=== PATIENT | male | born 1975 | race Two or more races ===

== ENCOUNTER 2020-01-30 06:00 | Day surgery (SDC) | payer OTHER ==
[2020-01-30] MEDS ORDERED: FLAGYL500MG PO (11:41)
[2020-01-30] MEDS ORDERED: CIPRO500 MG PO (11:41)
== END 2020-01-30 12:45 | disposition home or self-care (01) ==
LOC: AMB-ENDOS 06:00
PROVIDERS: ATTEND Surgery
DX: K63.5 Polyp of colon (principal); Z20.828 Contact with and (suspected) exposure to other viral communicable diseases; K64.8 Other hemorrhoids

== ENCOUNTER 2020-02-25 09:45 | Inpatient (IN) | payer OTHER ==
[~2020-02-25] VITALS: Ht 170.2 cm; Wt 89.8 kg
[~2020-02-25 09:45] MED LIST: CIPRO500 MG PO; FLAGYL500MG PO
[2020-02-25] MEDS ORDERED: IRBESARTAN-HCT1 EACH PO (14:47)
[2020-02-25] MEDS ORDERED: ZYLOPRIM100 MG PO (14:48)
[2020-02-25] MEDS ORDERED: LIPITOR40 M1 PO (14:48)
[2020-02-25] MEDS ORDERED: ASPIR 8181 MG PO (14:48)
[2020-02-25] MEDS ORDERED: ZETIA10 MG PO (14:48)
[2020-02-25] MEDS ORDERED: OMEGA 3-6-9 CO400 MG PO (14:48)
[2020-02-25] MEDS ORDERED: SINGULAIR10 MG PO (14:49)
[2020-02-25] MEDS ORDERED: XYZAL5 MG PO (14:49)
== END 2020-03-05 13:37 | disposition home or self-care (01) | DRG 330 ==
LOC: SURG 03-03 06:45 → O/R 03-03 06:45 → SURH 03-03 08:45 → SURG 03-03 14:59
PROVIDERS: ADMIT Surgery; ATTEND Surgery
PROC: 0DBN4ZZ Excision of Sigmoid Colon, Percutaneous Endoscopic Approach (ICD-10-PCS; 2020-03-03)
PROC: 0DJD8ZZ Inspection of Lower Intestinal Tract, Via Natural or Artificial Opening Endoscopic (ICD-10-PCS; 2020-03-03)
PROC: 0DTP4ZZ Resection of Rectum, Percutaneous Endoscopic Approach (ICD-10-PCS; principal; 2020-03-03 08:45)
DX: K57.30 Diverticulosis of large intestine without perforation or abscess without bleeding (principal); K56.699 Other intestinal obstruction unspecified as to partial versus complete obstruction

== ENCOUNTER 2020-03-15 17:14 | Emergency (ER) | payer OTHER ==
[~2020-03-15] VITALS: Ht 170.2 cm; Wt 86.2 kg
[~2020-03-15 17:14] MED LIST changes: +ASPIR 8181 MG PO; +IRBESARTAN-HCT1 EACH PO; +LIPITOR40 M1 PO; +OMEGA 3-6-9 CO400 MG PO; +SINGULAIR10 MG PO; +XYZAL5 MG PO; +ZETIA10 MG PO; +ZYLOPRIM100 MG PO
== END 2020-03-15 20:06 | disposition home or self-care (01) ==
LOC: ER 17:14
DX: K29.60 Other gastritis without bleeding (principal); Z03.818 Encounter for observation for suspected exposure to other biological agents ruled out; R11.2 Nausea with vomiting, unspecified

== ENCOUNTER 2020-03-23 02:53 | Inpatient (IN) | payer OTHER ==
[~2020-03-23] VITALS: Ht 170.2 cm; Wt 80.3 kg
[2020-03-23] MEDS ORDERED: CARAFATE1 GM (03:09)
[2020-03-23] MEDS ORDERED: AMOX1TAB5 (03:09)
[2020-03-23] MEDS ORDERED: NEXIUM40 M1 (03:09)
[2020-03-23] MEDS ORDERED: DOLOGEN 325-11 EACH (03:09)
[2020-03-23] MEDS ORDERED: PEPCID AC20 MG (03:10)
--- NOTE | 2020-03-23 03:12 | NUR ---
SE RECIBE PTE ALERA Y ORIENTADO POR ASH. PTE ACOMPANADO DE CELIS MADRE QUIEN REFIERE QUE EL PACIENTE PRESENTA DOLOR EN COSTADO NURYS DESDE HACE YESI SEMANA, DIEGO QUE AUMENTO CELIS NIVEL DE DOLOR A LA 1:00AM.
--- NOTE | 2020-03-23 04:39 | NUR ---
PACIENTE ORIENTADO SOBRE EL TX. SE EXTRAEN MUESTRAS DE RUBI BAJO MEDIDAS ASEPTICAS SE ROTULAN Y EVNIAN AL LABORATORIO. SE CANALIZA Y ADMINISTRAN MEDICAMENTOS MADALYN ORDEN MEDICA.
--- NOTE | 2020-03-23 07:53 | NUR ---
SE RECIBE PTE ALERTA Y CONCIENTE POR 3 EN JUNE CON BARANDAS ELEVADA Y TIMBRE ACCESIBLE PTE NO PRESENTA DOLOR AL MOMENTO, SE OBSERVA VENOPUNCION PANTENTE Y VAISHNAVI DE EDEMA PTE SE MANTIENE EN OBSERVACION Y BAJO TRATAMIENTO.
[2020-03-28] MEDS ORDERED: LEVOCETIRIZINE D5 MG (10:52)
[2020-03-28] MEDS ORDERED: ATORVASTATIN CA10 MG (10:52)
[2020-03-28] MEDS ORDERED: EZETIMIBE10 MG (10:52)
[2020-03-28] MEDS ORDERED: MONTELUKAST SOD10 MG (10:52)
[2020-04-08] MEDS ORDERED: COUMADIN 5 MG PO (08:41)
== END 2020-04-08 14:38 | disposition home or self-care (01) | DRG 438 ==
LOC: ER 02:53 → SURH 07:47 → SEC-K 07:47 → SURH 21:01
PROVIDERS: ADMIT Surgery; ATTEND Surgery
PROC: BF37ZZZ Magnetic Resonance Imaging (MRI) of Pancreas (ICD-10-PCS; principal; 2020-03-24)
PROC: BW40ZZZ Ultrasonography of Abdomen (ICD-10-PCS; 2020-03-24)
PROC: 02HV33Z Insertion of Infusion Device into Superior Vena Cava, Percutaneous Approach (ICD-10-PCS; 2020-03-24)
PROC: B54DZZZ Ultrasonography of Bilateral Lower Extremity Veins (ICD-10-PCS; 2020-03-28)
PROC: B246ZZZ Ultrasonography of Right and Left Heart (ICD-10-PCS; 2020-03-29)
PROC: BW30ZZZ Magnetic Resonance Imaging (MRI) of Abdomen (ICD-10-PCS; 2020-04-01)
PROC: BW30Y0Z Magnetic Resonance Imaging (MRI) of Abdomen using Other Contrast, Unenhanced and Enhanced (ICD-10-PCS; 2020-04-01)
DX: K85.80 Other acute pancreatitis without necrosis or infection (principal); I81 Portal vein thrombosis; K57.32 Diverticulitis of large intestine without perforation or abscess without bleeding; E72.11 Homocystinuria; D68.62 Lupus anticoagulant syndrome; R65.10 Systemic inflammatory response syndrome (SIRS) of non-infectious origin without acute organ dysfunction; K62.4 Stenosis of anus and rectum; Z20.828 Contact with and (suspected) exposure to other viral communicable diseases
CPT/HCPCS: 74182

== ENCOUNTER 2020-04-12 18:03 | Inpatient (IN) | payer OTHER ==
[~2020-04-12] VITALS: Ht 170.2 cm; Wt 79.4 kg
[~2020-04-12 18:03] MED LIST changes: +AMOX1TAB5; +ATORVASTATIN CA10 MG; +CARAFATE1 GM; +COUMADIN 5 MG PO; +DOLOGEN 325-11 EACH; +EZETIMIBE10 MG; +LEVOCETIRIZINE D5 MG; +MONTELUKAST SOD10 MG; +NEXIUM40 M1; +PEPCID AC20 MG
[2020-04-13] MEDS ORDERED: ONDANSETRON HCL4 MG (08:17)
[2020-04-13] MEDS ORDERED: FOLIC ACID1 MG (08:17)
[2020-04-13] MEDS ORDERED: JANTOVEN3 MG (08:18)
[2020-04-13] MEDS ORDERED: MONTELUKAST SOD10 MG (08:18)
[2020-04-13] MEDS ORDERED: ZYLOPRIM100 M1 PO (08:19)
[2020-04-13] MEDS ORDERED: ZETIA10 MG PO (08:21)
[2020-04-13] MEDS ORDERED: ATORVASTATIN CA40 MG (08:21)
[2020-04-13] MEDS ORDERED: OMEGA 3-6-9 CO400 MG (08:22)
[2020-05-09] MEDS ORDERED: COUMADIN 5 MG PO (13:05)
[2020-05-09] MEDS ORDERED: INTESTINEX680 M1 PO (13:05)
[2020-05-09] MEDS ORDERED: PROTONIX40 MG PO (13:06)
== END 2020-05-09 15:58 | disposition home or self-care (01) | DRG 329 ==
LOC: ER 18:03 → ICU-2 20:30 → SURG 20:30 → ICU 20:30 → ICU-2 21:37 → ICU 04-14 04:45 → SURG 04-27 19:41
PROVIDERS: Surgery; ADMIT Internal Medicine Cardiovascular Disease; ATTEND Internal Medicine Cardiovascular Disease
PROC: BW21ZZZ Computerized Tomography (CT Scan) of Abdomen and Pelvis (ICD-10-PCS; 2020-04-13)
PROC: 30233L1 Transfusion of Nonautologous Fresh Plasma into Peripheral Vein, Percutaneous Approach (ICD-10-PCS; 2020-04-13)
PROC: 30233K1 Transfusion of Nonautologous Frozen Plasma into Peripheral Vein, Percutaneous Approach (ICD-10-PCS; 2020-04-13)
PROC: 0W9F0ZZ Drainage of Abdominal Wall, Open Approach (ICD-10-PCS; 2020-04-14)
PROC: 0DBA0ZZ Excision of Jejunum, Open Approach (ICD-10-PCS; principal; 2020-04-14 14:30)
PROC: 4A033R1 Measurement of Arterial Saturation, Peripheral, Percutaneous Approach (ICD-10-PCS; 2020-04-15)
PROC: 02HV33Z Insertion of Infusion Device into Superior Vena Cava, Percutaneous Approach (ICD-10-PCS; 2020-04-15)
PROC: 4A12X4Z Monitoring of Cardiac Electrical Activity, External Approach (ICD-10-PCS; 2020-04-15)
PROC: 0BH17EZ Insertion of Endotracheal Airway into Trachea, Via Natural or Artificial Opening (ICD-10-PCS; 2020-04-16)
PROC: 5A1955Z Respiratory Ventilation, Greater than 96 Consecutive Hours (ICD-10-PCS; 2020-04-16)
PROC: 3E0436Z Introduction of Nutritional Substance into Central Vein, Percutaneous Approach (ICD-10-PCS; 2020-04-18)
PROC: 30233N1 Transfusion of Nonautologous Red Blood Cells into Peripheral Vein, Percutaneous Approach (ICD-10-PCS; 2020-04-27)
DX: K63.1 Perforation of intestine (nontraumatic) (principal); A41.9 Sepsis, unspecified organism; K65.1 Peritoneal abscess; I81 Portal vein thrombosis; J95.821 Acute postprocedural respiratory failure; K85.90 Acute pancreatitis without necrosis or infection, unspecified; N17.8 Other acute kidney failure; D68.312 Antiphospholipid antibody with hemorrhagic disorder; A04.72 Enterocolitis due to Clostridium difficile, not specified as recurrent; E87.0 Hyperosmolality and hypernatremia; R18.8 Other ascites; Z20.828 Contact with and (suspected) exposure to other viral communicable diseases; F78 Other intellectual disabilities; T45.515A Adverse effect of anticoagulants, initial encounter; I12.9 Hypertensive chronic kidney disease with stage 1 through stage 4 chronic kidney disease, or unspecified chronic kidney disease; N18.9 Chronic kidney disease, unspecified; B96.29 Other Escherichia coli [E. coli] as the cause of diseases classified elsewhere; E87.6 Hypokalemia